=== PATIENT | male | born 1965 | race African-American/Black ===

== ENCOUNTER 2022-08-31 11:07 | Outpatient (REF) | payer OTHER, SELFPAY ==
--- NOTE | ~2022-08-31 | XR_ITS ---
EXAMINATION: XR CHEST CLINICAL INFORMATION: COPD COMPARISON: None available. TECHNIQUE: 2 views of the chest were obtained. FINDINGS: The cardiac silhouette does not appear enlarged. The thoracic aorta is tortuous. Hilar and mediastinal contours are otherwise unremarkable clear. No pleural effusion or pneumothorax. Bony structures are unremarkable. XR/XR chest 2V IMPRESSION: No evidence for acute disease in the chest. Tortuous thoracic aorta.
== END 2022-08-31 11:08 | disposition home or self-care (01) ==
LOC: HO.XRAY 11:07
PROVIDERS: PCP Internal Medicine; Visit Provider Internal Medicine
DX: J44.9 Chronic obstructive pulmonary disease, unspecified (principal)
CPT/HCPCS: 71046

== ENCOUNTER 2022-09-14 11:51 | Outpatient (REF) | payer OTHER, SELFPAY ==
[2022-09-14 12:02] LABS: MANUAL DIFF FLAG NO
[2022-09-14 12:26] LABS: Basophils Percent Auto 0.7 % (0-2); Eosinophils Absolute Auto 0.2 X10*3/uL (0.0-0.4); Eosinophils Percent Auto 3.3 % (0-4); Hematocrit 39.8 % (42.0-52.0); Hemoglobin 13.2 g/dl (14.0-18.0); Imm Gran Abs Auto 0.02 X10*3/uL (0.00-0.03); Imm Gran Pct Auto 0.4 % (0.0-0.4); Lymphocytes Percent Auto 17.9 % (20-40); Mean Corpuscular HGB Conc 33.2 g/dl (31.0-36.0); Mean Corpuscular Hemoglobin 29.8 pg (27.0-33.0); Mean Corpuscular Volume 89.8 fL (80.0-98.0); Mean Platelet Volume 9.2 fL (9.4-12.4); Monocytes Absolute Auto 0.7 X10*3/uL (0.1-1.2); Monocytes Percent Auto 13.3 % (2-11); Neutrophils Absolute Auto 3.5 x10*3/uL (2.0-8.3); Neutrophils Percent Auto 64.4 % (45-73); Platelet Count 226 X10*3/uL (160-400); Red Blood Count 4.43 X10*6/uL (4.60-5.80); Red Cell Distribution Width 13.6 % (11.0-16.0); White Blood Count 5.5 X10*3/uL (4.8-10.8)
[2022-09-14 12:54] LABS: Alanine Aminotransferase 13 U/L (0-40); Albumin Level 4.2 g/dL (3.5-5.0); Alkaline Phosphatase 78 U/L (39-117); Anion Gap 14 (12-20); Aspartate Amino Transferase 13 U/L (5-37); Blood Urea Nitrogen 14 mg/dL (9-16); Calcium 9.5 mg/dL (8.4-10.2); Carbon Dioxide 27 mmol/L (22-29); Chloride 104 mmol/L (96-108); Cholesterol 209 mg/dL; Estimated Glomerular Filt Rate > 60; Glucose Random 81 mg/dL (60-115); HDL Cholesterol 45 mg/dL; LDL Cholesterol Calculated 152 mg/dl; Potassium 4.2 mmol/L (3.3-5.1); Sodium 141 mmol/L (135-145); Total Protein 7.3 g/dL (6.5-8.0); Triglycerides 64 mg/dL
[2022-09-14 13:15] LABS: Prostate Specific Antigen Scr 31.43 ng/mL (<0.05-4.0)
== END 2022-09-14 11:52 | disposition home or self-care (01) ==
LOC: HO.LAB 11:51
PROVIDERS: PCP Internal Medicine; Visit Provider Internal Medicine
DX: Z00.00 Encounter for general adult medical examination without abnormal findings (principal); Z12.5 Encounter for screening for malignant neoplasm of prostate; E78.00 Pure hypercholesterolemia, unspecified; I10 Essential (primary) hypertension; R97.20 Elevated prostate specific antigen [PSA]
CPT/HCPCS: 36415; 80053; 80061; 84153; 85025

== ENCOUNTER 2022-11-29 11:04 | Outpatient (REF) | payer OTHER, SELFPAY ==
[2022-11-29 13:52] LABS: Alanine Aminotransferase 11 U/L (0-40); Alkaline Phosphatase 69 U/L (39-117); Anion Gap 12 (12-20); Aspartate Amino Transferase 13 U/L (5-37); Bilirubin Total 0.8 mg/dL (0.0-1.0); Blood Urea Nitrogen 11 mg/dL (9-16); Calcium 9.3 mg/dL (8.4-10.2); Carbon Dioxide 25 mmol/L (22-29); Chloride 107 mmol/L (96-108); Cholesterol 192 mg/dL; Estimated Glomerular Filt Rate > 60; Glucose Random 83 mg/dL (60-115); HDL Cholesterol 46 mg/dL; LDL Cholesterol Calculated 131 mg/dl; Potassium 3.8 mmol/L (3.3-5.1); Sodium 140 mmol/L (135-145); Total Protein 6.9 g/dL (6.5-8.0); Triglycerides 76 mg/dL
== END 2022-11-29 11:05 | disposition home or self-care (01) ==
LOC: HO.10HDL 11:04
PROVIDERS: Visit Provider Internal Medicine
DX: E78.00 Pure hypercholesterolemia, unspecified (principal); I10 Essential (primary) hypertension; R97.20 Elevated prostate specific antigen [PSA]
CPT/HCPCS: 36415; 80053; 80061

== ENCOUNTER 2022-12-20 14:35 | Outpatient (AMB) | payer OTHER, MEDICAID, SELFPAY ==
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
[2022-12-20 14:40] VITALS: BP 154/80; PULSE 54; O2SAT 100; BMI 25.1
== END 2022-12-20 15:30 | disposition home or self-care (01) ==
PROVIDERS: PCP Internal Medicine; Visit Provider Internal Medicine
DX: R05.9 Cough, unspecified (principal); R06.09 Other forms of dyspnea; C61 Malignant neoplasm of prostate
CPT/HCPCS: 99203

== ENCOUNTER 2022-12-20 14:35 | Outpatient (REF) | payer OTHER, MEDICAID, SELFPAY ==
--- NOTE | ~2022-12-20 | XR_ITS ---
EXAMINATION: XR CHEST 2 VIEW CLINICAL INFORMATION: Dyspnea COMPARISON: 08/31/2022 TECHNIQUE: PA and lateral views of the chest obtained. FINDINGS: The lungs are clear. There are no pleural effusions. The cardiomediastinal silhouette is stable. The aorta is uncoiled. XR/XR chest 2V IMPRESSION: No acute cardiopulmonary disease.
== END 2022-12-20 14:36 | disposition home or self-care (01) ==
LOC: HO.XRAY 14:35
PROVIDERS: PCP Internal Medicine; Visit Provider Internal Medicine
DX: R06.09 Other forms of dyspnea (principal); R05.9 Cough, unspecified; C61 Malignant neoplasm of prostate
CPT/HCPCS: 71046

== ENCOUNTER 2023-01-02 10:34 | Outpatient (REF) | payer OTHER, SELFPAY ==
--- NOTE | 2023-01-02 11:19 | PFT_ITS ---
FINDINGS: Forced vital capacity 133%, FEV1 of 119% and FEV1/FVC ratio is 70. [id number] 81% and MVV is 85%. Post bronchodilator therapy, there is significant improvement in [id number] and FEF maximum. Total lung capacity 131%. The residual volume is 215% indicating hyperinflation and some air trapping. Diffusion capacity is 85%. CONCLUSION: While there is no obstructive or restrictive pulmonary disorder, there is a significant response to bronchodilator therapy consistent with bronchial asthma. Clinical correlation is recommended. MD ANA Rodriguez/MODL / [id number]
== END 2023-01-02 10:35 | disposition home or self-care (01) ==
LOC: HO.RESP 10:34
PROVIDERS: PCP Internal Medicine; Visit Provider Internal Medicine
DX: R05.9 Cough, unspecified (principal); R06.09 Other forms of dyspnea
CPT/HCPCS: 94010; 94727; 94729

== ENCOUNTER → 2023-01-02 11:19 | Outpatient (BNV) | payer OTHER, SELFPAY | PROVIDERS: PCP Internal Medicine; Visit Provider Internal Medicine | DX: J45.909 Unspecified asthma, uncomplicated (principal); R05.9 Cough, unspecified | CPT/HCPCS: 94060; 94727; 94729 ==

== ENCOUNTER 2023-01-25 10:06 | Outpatient (AMB) | payer OTHER, MEDICAID, SELFPAY ==
--- NOTE | 2023-01-25 10:08 | MHC.OFFVIS ---
Intake Vital Signs 01/25/23 10:09 Height 5 ft 11 in Weight 191 lb BMI 26.6 BP 110/82 Blood Pressure Location Lt brachial Position Sitting Pulse 71 Pulse Source Pulse Oximeter Pulse Oximetry (%) 99 Oxygen Delivery Method Room Air Intake Visit Reasons: COPD Intake Note: pt is here for follow up and states he is feeling good. 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 He was seen about a month ago for ongoing intermittent cough. Since then his cough has almost resolved completely. He does have albuterol HFA on hand but does not need to use it. 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 I advised him to veer double mask when he is in this kind. of situation And use albuterol inhaler as needed. Jaiden is a case of prostate cancer and is to be started on chemotherapy. [facility] Medical History (Updated 01/25/23 @ 10:30 by William Bhat MD) Asthma Cancer of prostate Dyspnea on effort Cough Social History Patient Tobacco Use Status: Never used Tobacco Review of Systems Const All systems reviewed & are unremarkable except as noted in HPI and below Eyes Reports no additional complaints ENT Reports no additional complaints Card Denies chest pain, Denies irregular heart rhythm and Denies leg edema Resp Reports as per HPI GI Reports no additional complaints Reports nocturia, Reports urinary frequency and Reports other (Recent diagnosis of prostate cancer) Musc Reports no additional complaints Skin/Breast Reports system reviewed and no additional complaints, except as documented Neuro Reports no additional complaints Psych Reports no additional complaints Endo Reports no additional complaints Minesh/Lymph Reports no additional complaints Physical Exam Vital Signs: Last Vital Signs Pulse 71 01/25/23 10:09 BP 110/82 01/25/23 10:09 Pulse Ox 99 01/25/23 10:09 Oxygen Delivery Method Room Air 01/25/23 10:09 BMI result Body Mass Index 26.6 Const General: comfortable, no acute distress, alert and awake Orientation/consciousness: patient oriented x3 HEENT Head: Yes normal to inspection General nose exam: No nasal polyps present and No nasal discharge present Face and sinus: Yes sinuses nontender Mouth: oropharynx normal Throat: Yes posterior oropharynx normal Eyes General: appearance normal, both eyes and all related structures Neck Neck: Yes normal visual inspection, Yes no lymphadenopathy, Yes trachea midline and Yes no JVD Thyroid: Thyroid normal Chest Chest palpation & inspection: normal inspection of the chest and no tenderness Resp Other: Percussion note is resonant, breath sounds are equal on both sides . No wheezes rhonchi or crepitations are heard. He does not get any cough even on taking a deep breath. Cardio Palpation: normal PMI Rate: regular rate Rhythm: regular rhythm Heart sounds: no gallops and no murmurs GI Palpation (GI): Soft to palpation, nontender, No hepatosplenomegaly present and no masses Auscultation: normal bowel sounds Back/Spine/Pelvis Thoracic/Lumbar Spine: thoracic and lumbar spine normal to inspection Skin General skin exam: no rashes or lesions noted Neuro General: patient oriented x3 and no focal motor deficits Cranial nerves: Yes CN's II-XII intact bilaterally Extrem General: Yes normal to inspection, Yes no clubbing, cyanosis or edema and Yes no calf tenderness Psych Appearance: grossly normal Speech and movement: Normal speech and movement present Results Reviewed Results Reviewed: CHEST X-RAY WAS NORMAL, NO INTRINSIC LUNG DISEASE. PULMONARY FUNCTION TEST SHOWS ALL THE FLOW VOLUMES AND LUNG. VOLUMES IN NORMAL RANGE BUT THERE IS AN EXAGGERATED RESPONSE TO BRONCHODILATOR THERAPY, INDICATED OF OF MILD BRONCHIAL ASTHMA. Assessment & Plan Assessment & Plan (1) Cough: Comment: SINCE HIS LAST VISIT HIS COUGH HAS RESOLVED COMPLETELY, AND HE HAS NOT REQUIRED, USE OF BRONCHODILATORS. Code(s): R05.9 - Cough, unspecified (2) Asthma: Comment: MILD INTERMITTENT, MOSTLY DUE, TO EXPOSURE TO DUST , SMOKE, OR FIBERGLASS INSULATION. TX : EXPLAINED THE RESULTS OF PFT TO HIM. USE ALBUTEROL HFA 1 OR 2 PUFFS Q 4-6 HOURS ONLY P.R.N. FOR BOUTS OF COUGH OR WHEEZING. Code(s): J45.909 - Unspecified asthma, uncomplicated Coding Level of Care Code Est Pt Level 3 (60148) Diagnoses Cough R05.9 Asthma J45.909
[2023-01-25 10:09] VITALS: BP 110/82; PULSE 71; O2SAT 99; BMI 26.6
== END 2023-01-25 10:25 | disposition home or self-care (01) ==
PROVIDERS: PCP Internal Medicine; Visit Provider Internal Medicine
DX: R05.9 Cough, unspecified (principal); J45.909 Unspecified asthma, uncomplicated
CPT/HCPCS: 99213

== ENCOUNTER → 2023-01-25 10:06 | Outpatient (BNVA) | payer OTHER, SELFPAY | PROVIDERS: PCP Internal Medicine; Visit Provider Internal Medicine ==

== ENCOUNTER 2023-08-08 10:01 | Outpatient (REF) | payer OTHER, SELFPAY ==
--- NOTE | ~2023-08-08 | XR_ITS ---
EXAMINATION: XR chest 2V CLINICAL INFORMATION: Reason for Exam COUGH,HX OF METASTATIC PROSTATE CA COMPARISON: Chest radiograph 12/20/2022 TECHNIQUE: 2 views of the chest FINDINGS: Right medial lung base 4 mm opacity may reflect a nodule versus superimposition of structures. No pneumothorax or pleural effusion. Unchanged cardiomediastinal silhouette. Right CVC tip projects over the right atrium.. XR/XR chest 2V Impression: Right medial lung base 4 mm opacity may reflect a nodule versus superimposition of structures. Consider CT chest for further evaluation
[2023-08-08 10:16] LABS: MANUAL DIFF FLAG NO
[2023-08-08 10:55] LABS: Basophils Percent Auto 0.6 % (0-2); Eosinophils Absolute Auto 0.4 X10*3/uL (0.0-0.4); Eosinophils Percent Auto 10.9 % (0-4); Hematocrit 38.2 % (42.0-52.0); Hemoglobin 12.4 g/dl (14.0-18.0); Lymphocytes Absolute Auto 1.5 X10*3/uL (1.2-4.9); Lymphocytes Percent Auto 44.2 % (20-40); Mean Corpuscular HGB Conc 32.5 g/dl (31.0-36.0); Mean Corpuscular Hemoglobin 28.8 pg (27.0-33.0); Mean Corpuscular Volume 88.8 fL (80.0-98.0); Mean Platelet Volume 9.7 fL (9.4-12.4); Monocytes Absolute Auto 0.3 X10*3/uL (0.1-1.2); Monocytes Percent Auto 7.7 % (2-11); Neutrophils Absolute Auto 1.2 x10*3/uL (2.0-8.3); Neutrophils Percent Auto 36.6 % (45-73); Platelet Count 238 X10*3/uL (160-400); Red Cell Distribution Width 14.1 % (11.0-16.0); White Blood Count 3.4 X10*3/uL (4.8-10.8)
[2023-08-08 11:58] LABS: Alanine Aminotransferase 15 U/L (0-40); Albumin Level 4.2 g/dL (3.5-5.0); Alkaline Phosphatase 100 U/L (39-117); Anion Gap 12 (12-20); Aspartate Amino Transferase 14 U/L (5-37); Bilirubin Total 0.5 mg/dL (0.0-1.0); Blood Urea Nitrogen 17 mg/dL (9-16); Calcium 9.1 mg/dL (8.4-10.2); Carbon Dioxide 27 mmol/L (22-29); Chloride 106 mmol/L (96-108); Cholesterol 238 mg/dL (<200); Estimated Glomerular Filt Rate > 60; Glucose Random 85 mg/dL (60-115); HDL Cholesterol 46 mg/dL (>40); LDL Cholesterol Calculated 172 mg/dL (<100); Potassium 4.3 mmol/L (3.3-5.1); Sodium 141 mmol/L (135-145); Total Protein 7.1 g/dL (6.5-8.0); Triglycerides 102 mg/dL (<150)
== END 2023-08-08 10:02 | disposition home or self-care (01) ==
LOC: HO.LAB 10:01
PROVIDERS: PCP Internal Medicine; Visit Provider Internal Medicine
DX: Z00.00 Encounter for general adult medical examination without abnormal findings (principal); Z13.6 Encounter for screening for cardiovascular disorders; R05.9 Cough, unspecified; J44.9 Chronic obstructive pulmonary disease, unspecified; I10 Essential (primary) hypertension; E78.00 Pure hypercholesterolemia, unspecified; C61 Malignant neoplasm of prostate
CPT/HCPCS: 36415; 71046; 80053; 80061; 85025

== ENCOUNTER 2023-09-12 09:12 | Outpatient (AMB) | payer OTHER, SELFPAY ==
[2023-09-12 09:38] VITALS: BP 130/78; PULSE 82; O2SAT 98; BMI 28.7
--- NOTE | 2023-09-12 09:38 | MHC.OFFVIS ---
Vital Signs 09/12/23 09:38 Height 5 ft 11 in Weight 206 lb 2.115 oz BMI 28.7 BP 130/78 Blood Pressure Location Lt brachial Position Sitting Pulse 82 Pulse Source Pulse Oximeter Pulse Oximetry (%) 98 Oxygen Delivery Method Room Air Intake Visit Reasons: copd Intake Note: pt is here for follow up and states he is snoring a lot and witnessed apneas, he does get up often to use the bathroom, due to medication, and he has been coughing for 2 weeks with a lot of mucous, when sleeping wheezing, and fever past 2 days. [employer] Required: No Allergies No Known Allergies Allergy (Verified 09/12/23 10:10) Medication List - Last Reconciled 09/12/23 by William Bhat MD acetaminophen 650 mg PO Q6H PRN albuterol sulfate 90 mcg/actuation 2 puffs inhalation Q4-6H PRN amlodipine 10 mg PO DAILY atorvastatin 20 mg PO DAILY darolutamide (Nubeqa) 600 mg PO BID Do you need a note to return to daycare/school/sports/work: No HPI HPI copd: Details: THIS 57 YEARS OLD GENTLEMAN, COMES IN WITH CHIEF COMPLAINT OF SOME NASAL CONGESTION AND COUGH FOR THE LAST 2 WEEKS. HE DID HAVE LOW-GRADE FEVER FOR A FEW DAYS. NOW DURING THE PAST 1 WEEK IT IS ALMOST GONE. HE DOES HAVE TENDENCY TO HAVE NASAL CONGESTION. HIS PRIMARY CARE PHYSICIAN GAVE HIM A NASAL SPRAY WHICH HAS HELPED ( DOES NOT KNOW THE NAME) HIS CAME ALONG WITH HIM. SHE STATED THAT HE DOES SNORE MODERATELY HEAVY AT NIGHT ESPECIALLY IF HE IS ON HIS BACK. ALSO HAS SOME WHISTLING SOUNDS AT NIGHT WHEN SLEEPING. JENNY TELLS ME THAT HE HAS TENDENCY TO SNORE MORE WHEN HIS HE HAS NASAL CONGESTION, DURING THE DAYTIME HE DOES NOT HAVE ANY WHEEZING AND HAS NOT NEEDED TO USE ALBUTEROL. HE DENIES DAYTIME SLEEPINESS. 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 HE CONTINUES HIS TREATMENT WITH DAROLUTAMIDE 600 MG B.I.D.. HE IS ONLY SLIGHTLY OVERWEIGHT. [facility] Medical History (Updated 09/12/23 @ 13:16 by William Bhat MD) Snoring Asthma Cancer of prostate Dyspnea on effort Cough Social History Patient Tobacco Use Status: Never used Tobacco Review of Systems Const All systems reviewed & are unremarkable except as noted in HPI and below Eyes Reports no additional complaints ENT Reports no additional complaints Card Denies chest pain, Denies irregular heart rhythm and Denies leg edema Resp Reports as per HPI GI Reports no additional complaints Reports nocturia, Reports urinary frequency and Reports other (Recent diagnosis of prostate cancer) Musc Reports no additional complaints Skin/Breast Reports system reviewed and no additional complaints, except as documented Neuro Reports no additional complaints Psych Reports no additional complaints Endo Reports no additional complaints Minesh/Lymph Reports no additional complaints Physical Exam Vital Signs: Last Vital Signs Pulse 82 09/12/23 09:38 BP 130/78 09/12/23 09:38 Pulse Ox 98 09/12/23 09:38 Oxygen Delivery Method Room Air 09/12/23 09:38 BMI result Body Mass Index 28.7 Const General: comfortable, no acute distress, alert and awake Orientation/consciousness: patient oriented x3 HEENT Head: Yes normal to inspection General nose exam: No nasal polyps present, mucous membranes and turbinates abnormal (NASAL TURBINATES ARE MODERATELY ENLARGED) and No nasal discharge present Face and sinus: Yes sinuses nontender Mouth: oropharynx normal Throat: Yes posterior oropharynx normal Eyes General: appearance normal, both eyes and all related structures Neck Neck: Yes normal visual inspection, Yes no lymphadenopathy, Yes trachea midline, Yes no JVD and Yes other (NECK CIRCUMFERENCE 16 IN) Thyroid: Thyroid normal Chest Chest palpation & inspection: normal inspection of the chest, normal palpation of entire chest wall and no tenderness Resp Other: Percussion note is resonant, breath sounds are equal on both sides . No wheezes rhonchi or crepitations are heard. He does not get any cough even on taking a deep breath. Cardio Palpation: normal PMI Rate: regular rate Rhythm: regular rhythm Heart sounds: no gallops and no murmurs GI Palpation (GI): Soft to palpation, nontender, No hepatosplenomegaly present and no masses Auscultation: normal bowel sounds Back/Spine/Pelvis Thoracic/Lumbar Spine: thoracic and lumbar spine normal to inspection Skin General skin exam: no rashes or lesions noted Neuro General: patient oriented x3 and no focal motor deficits Cranial nerves: Yes CN's II-XII intact bilaterally Extrem General: Yes normal to inspection, Yes no clubbing, cyanosis or edema and Yes no calf tenderness Psych Appearance: grossly normal Speech and movement: Normal speech and movement present Assessment & Plan Assessment & Plan (1) Asthma: Comment: MILD INTERMITTENT, MOSTLY DUE, TO EXPOSURE TO DUST , SMOKE, OR FIBERGLASS INSULATION OR IF HE HAS ANY UPPER RESPIRATORY INFECTION, Code(s): J45.909 - Unspecified asthma, uncomplicated Category: Medical Plan: TX : EXPLAINED THE RESULTS OF PFT TO HIM. USE ALBUTEROL HFA 1 OR 2 PUFFS Q 4-6 HOURS ONLY P.R.N. FOR BOUTS OF COUGH OR WHEEZING. (2) Cough: Comment: MILD INTERMITTENT MOSTLY ASTHMA VARIANT. Code(s): R05.9 - Cough, unspecified Category: Medical Plan: ADVISED TO USE ALBUTEROL 2 PUFFS Q 6 HOURS P.R.N. IF HE HAS PERSISTENT BOUTS OF COUGH. ALSO MAY USE OTC COUGH PREPARATIONS NEEDED. (3) Snoring: Comment: ACCORDING TO HIS HE DOES SNORE MODERATELY AT NIGHT ESPECIALLY IF HE IS IN SUPINE POSITION JENNY SAYS THAT HE TENDS TO SNORE MORE WHEN HE HAS COMMON COLD SYMPTOMS. Code(s): R06.83 - Snoring Category: Medical Plan: ADVISED TO LOSE ABOUT. 5 LB OF WEIGHT ADVISED TO SLEEP IN LATERAL POSITION. MAY USE NASAL SPRAY , SUCH FLONASE 1 OR 2 SPRAYS IN EACH NOSTRIL AT NIGHT. I DID EXPLAIN TO THE PATIENT AND HIS THAT HIS INDEX FOR OBSTRUCTIVE SLEEP APNEA IS VERY LOW. Coding Level of Care Code Est Pt Level 3 (31930) Diagnoses Asthma J45.909 Cough R05.9 Snoring R06.83
== END 2023-09-12 10:09 | disposition home or self-care (01) ==
PROVIDERS: PCP Internal Medicine; Visit Provider Internal Medicine
DX: J45.909 Unspecified asthma, uncomplicated (principal); R05.9 Cough, unspecified; R06.83 Snoring
CPT/HCPCS: 99213

== ENCOUNTER → 2023-09-12 09:12 | Outpatient (BNVA) | payer OTHER, SELFPAY | PROVIDERS: PCP Internal Medicine; Visit Provider Internal Medicine ==

== ENCOUNTER 2023-11-13 14:51 | Outpatient (AMB) | payer OTHER, SELFPAY ==
--- NOTE | 2023-11-13 14:52 | A.OFFVIS_ITS ---
Vital Signs 11/13/23 14:54 Height 5 ft 11 in Weight 207 lb BMI 28.9 BP 140/88 H Blood Pressure Location Rt brachial Position Sitting Respiration 15 Pulse 82 Pulse Source Pulse Oximeter Pulse Oximetry (%) 96 Oxygen Delivery Method Room Air Intake Visit Reasons: hospital follow up Allergies No Known Allergies Allergy (Verified 11/13/23 15:24) Medication List - Last Reconciled 11/13/23 by William Bhat MD acetaminophen 650 mg PO Q6H PRN albuterol sulfate 90 mcg/actuation 2 puffs inhalation Q4-6H PRN amlodipine 10 mg PO DAILY atorvastatin 20 mg PO DAILY darolutamide (Nubeqa) 600 mg PO BID [id number]-eldvvsfdj-xsrfktkc 100-62.5-25 mcg (Trelegy Ellipta) 1 inh inhalation DAILY prednisone 10 mg PO DIRECTED 10 days Do you need a note to return to daycare/school/sports/work: No HPI HPI hospital follow up: Details: This 57 years old gentleman, 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 He has had history of intermittent wheezing., usually treated with albuterol inhaler p.r.n.. I had prescribed him just albuterol inhaler to use 2 puffs Q 6 hours p.r.n.. He has been prescribed it Trelegy by someone, which he was using 1 puff a day, . And says it was helping But he ran out of this the product. He tells me that he was admitted to [facility] just about 1 week ago because he was having whistling sounds in the chest and felt congested. He was kept in the hospital overnight and was told that he has asthma exacerbation and questionable pneumonia. He was sent home on an antibiotic which he finished in 3 days, ( most likely Z- Young) He was also sent home on prednisone which he took just for 2 days and then lost his pills. He saw his primary care physician Dr. Fan who has prescribed the nebulizer with the albuterol solution to be used Q 4-6 hours p.r.n. He has not used it much. He comes today for follow-up here and claims that he still feels congested, he still has some whistling sounds in the chest at night. But he has no fever or chills and does not have any chest pain. [facility] Medical History Exacerbation of asthma Snoring Asthma Cancer of prostate Dyspnea on effort Cough Social History Patient Tobacco Use Status: Never used Tobacco Review of Systems Const All systems reviewed & are unremarkable except as noted in HPI and below Eyes Reports no additional complaints ENT Reports no additional complaints Card Denies chest pain, Denies irregular heart rhythm and Denies leg edema Resp Reports as per HPI GI Reports no additional complaints Reports nocturia, Reports urinary frequency and Reports other (Recent diagnosis of prostate cancer) Musc Reports no additional complaints Skin/Breast Reports system reviewed and no additional complaints, except as documented Neuro Reports no additional complaints Psych Reports no additional complaints Endo Reports no additional complaints Minesh/Lymph Reports no additional complaints Physical Exam Vital Signs: Last Vital Signs Pulse 82 11/13/23 14:54 Resp 15 11/13/23 14:54 BP 140/88 H 11/13/23 14:54 Pulse Ox 96 11/13/23 14:54 Oxygen Delivery Method Room Air 11/13/23 14:54 BMI result Body Mass Index 28.9 Const General: comfortable, no acute distress, alert and awake Orientation/consciousness: patient oriented x3 HEENT Head: Yes normal to inspection General nose exam: No nasal polyps present, mucous membranes and turbinates abnormal (NASAL TURBINATES ARE MODERATELY ENLARGED) and No nasal discharge present Face and sinus: Yes sinuses nontender Mouth: oropharynx normal Throat: Yes posterior oropharynx normal Eyes General: appearance normal, both eyes and all related structures Neck Neck: Yes normal visual inspection, Yes no lymphadenopathy, Yes trachea midline, Yes no JVD and Yes other (NECK CIRCUMFERENCE 16 IN) Thyroid: Thyroid normal Chest Chest palpation & inspection: normal inspection of the chest, normal palpation of entire chest wall and no tenderness Resp Other: Percussion note is resonant, breath sounds are equal on both sides . He does have some inspiratory wheezes over the mid chest on both sides, no crepitations Cardio Palpation: normal PMI Rate: regular rate Rhythm: regular rhythm Heart sounds: no gallops and no murmurs GI Palpation (GI): Soft to palpation, nontender, No hepatosplenomegaly present and no masses Auscultation: normal bowel sounds Back/Spine/Pelvis Thoracic/Lumbar Spine: thoracic and lumbar spine normal to inspection Skin General skin exam: no rashes or lesions noted Neuro General: patient oriented x3 and no focal motor deficits Cranial nerves: Yes CN's II-XII intact bilaterally Extrem General: Yes normal to inspection, Yes no clubbing, cyanosis or edema and Yes no calf tenderness Psych Appearance: grossly normal Speech and movement: Normal speech and movement present Results Reviewed Results Reviewed: Chest x-ray in July had shown a 4 mm nodule in the right lower lobe, and patient needed a follow-up. Assessment & Plan Assessment & Plan (1) Asthma: Comment: MILD INTERMITTENT, MOSTLY DUE, TO EXPOSURE TO DUST , SMOKE, OR FIBERGLASS INSULATION OR IF HE HAS ANY UPPER RESPIRATORY INFECTION, AT PRESENT HE IS RECOVERING FROM AN ACUTE EXACERBATION, WHICH MAY HAVE BEEN DUE TO ACUTE RESPIRATORY INFECTION. Code(s): J45.909 - Unspecified asthma, uncomplicated Category: Medical Plan: I HAVE ORDERED A CHEST X-RAY TO BE DONE TODAY AT HOSPITAL. PREDNISONE 10 MG B.I.D. FOR 5 DAYS AND THEN ONCE A DAY FOR 5 DAYS. USE ALBUTEROL INHALATION SOLUTION IN THE NEBULIZER Q 6 HOURS P.R.N. WHEN OUTDOORS HE CAN USE ALBUTEROL HFA Q.6 HOURS P.R.N.. I DO NOT THINK HE NEEDS ANY ANTIBIOTIC AT THIS TIME. (2) Cancer of prostate: Comment: PER PATIENT HE HAS BEEN DIAGNOSED TO HAVE PROSTATE CANCER, MORE DETAILS NOT AVAILABLE, Code(s): C61 - Malignant neoplasm of prostate Category: Medical Plan: CONTINUE NUBEQA 600 MG B.I.D.. (3) Exacerbation of asthma: Comment: HE WAS TREATED AT [facility] FOR ACUTE EXACERBATION OF BRONCHIAL ASTHMA AND QUESTION OF PNEUMONITIS. STILL HAS RESIDUAL CHEST CONGESTION AND WHEEZING. Code(s): J45.901 - Unspecified asthma with (acute) exacerbation Category: Medical Plan: CHEST X-RAY IS ORDERED. PREDNISONE 10 MG B.I.D. FOR 5 DAYS THEN 10 MG ONCE A DAY I WILL RECHECK HIM IN 2 WEEKS. Orders: Orders XR chest 2V Today C61 - Malignant neoplasm of prostate, J45.901 - Unspecified asthma with (acute) exacerbation Medications: New prednisone 2 tablets a day for 5 days then 1 tablet a day for 5 days 10 mg PO DIRECTED 10 days 15 tabs 0RF Asthma Excerbation Coding Level of Care Code Est Pt Level 3 (47974) Diagnoses Asthma J45.909 Cancer of prostate C61 Exacerbation of asthma J45.901
[2023-11-13 14:54] VITALS: BP 140/88; PULSE 82; RESP 15; O2SAT 96; BMI 28.9
== END 2023-11-13 15:19 | disposition home or self-care (01) ==
PROVIDERS: PCP Internal Medicine; Visit Provider Internal Medicine
DX: J45.909 Unspecified asthma, uncomplicated (principal); C61 Malignant neoplasm of prostate; J45.901 Unspecified asthma with (acute) exacerbation
CPT/HCPCS: 99213

== ENCOUNTER 2023-11-13 14:51 | Outpatient (REF) | payer OTHER, SELFPAY ==
--- NOTE | ~2023-11-13 | XR_ITS ---
EXAMINATION: XR chest 2V CLINICAL INFORMATION: Reason for Exam J45.901 - Unspecified asthma with (acute) exacerbation COMPARISON: July 2023 TECHNIQUE: XR chest 2V, 2 Views Lungs and Yoana: Both lungs are clear. Pleura: Normal. Costophrenic angles are sharp. No pneumothorax. Heart: The heart is normal in size. Mediastinum: Port-A-Cath in place the tip of which projecting over the SVC/RA junction.. Bones: Skeletal structures included are normal for patient's age. XR/XR chest 2V IMPRESSION: * No radiographic evidence of acute cardiopulmonary disease. * Port-A-Cath in place properly positioned.
== END 2023-11-13 14:52 | disposition home or self-care (01) ==
LOC: HO.XRAY 14:51
PROVIDERS: PCP Internal Medicine; Visit Provider Internal Medicine
DX: J45.901 Unspecified asthma with (acute) exacerbation (principal); C61 Malignant neoplasm of prostate
CPT/HCPCS: 71046

== ENCOUNTER 2023-12-03 16:07 | Outpatient (AMB) | payer OTHER, SELFPAY ==
[2023-12-03 16:15] VITALS: BP 132/88; PULSE 80; O2SAT 100; BMI 29.1
--- NOTE | 2023-12-03 16:15 | MHC.OFFVIS ---
Vital Signs 12/03/23 16:15 Height 5 ft 11 in Weight 209 lb BMI 29.1 BP 132/88 Blood Pressure Location Rt brachial Position Sitting Pulse 80 Pulse Source Pulse Oximeter Pulse Oximetry (%) 100 Oxygen Delivery Method Room Air Intake Visit Reasons: COPD Intake Note: pt is here for follow up of copd, and states he is feeling good. walking 2 miles a day. please send in dose of prednisone for him to take on this travels. 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 AFTER COMPLETING THE COURSE OF PREDNISONE HE IS FEELING MUCH BETTER. BACK TO HIS BASELINE. NOW HE CAN WALK 2 MILES WITHOUT. GETTING SHORT OF BREATH HOWEVER HE STILL HAS SOME INTERMITTENT NASAL CONGESTION WITH POSTNASAL DISCHARGE. STILL HAS MILD INTERMITTENT COUGH. NO WHEEZING ATTACKS. CHEST X-RAY WAS NEGATIVE. [facility] Medical History Exacerbation of asthma Snoring Asthma Cancer of prostate Dyspnea on effort Cough Social History Patient Tobacco Use Status: Never used Tobacco Review of Systems Const All systems reviewed & are unremarkable except as noted in HPI and below Eyes Reports no additional complaints ENT Reports no additional complaints Card Denies chest pain, Denies irregular heart rhythm and Denies leg edema Resp Reports as per HPI GI Reports no additional complaints Reports nocturia, Reports urinary frequency and Reports other (Recent diagnosis of prostate cancer) Musc Reports no additional complaints Skin/Breast Reports system reviewed and no additional complaints, except as documented Neuro Reports no additional complaints Psych Reports no additional complaints Endo Reports no additional complaints Minesh/Lymph Reports no additional complaints Physical Exam Vital Signs: Last Vital Signs Pulse 80 12/03/23 16:15 BP 132/88 12/03/23 16:15 Pulse Ox 100 12/03/23 16:15 Oxygen Delivery Method Room Air 12/03/23 16:15 BMI result Body Mass Index 29.1 Const General: comfortable, no acute distress, alert and awake Orientation/consciousness: patient oriented x3 HEENT Head: Yes normal to inspection General nose exam: No nasal polyps present, mucous membranes and turbinates abnormal (NASAL TURBINATES ARE MODERATELY ENLARGED) and No nasal discharge present Face and sinus: Yes sinuses nontender Mouth: oropharynx normal Throat: Yes posterior oropharynx normal Eyes General: appearance normal, both eyes and all related structures Neck Neck: Yes normal visual inspection, Yes no lymphadenopathy, Yes trachea midline, Yes no JVD and Yes other (NECK CIRCUMFERENCE 16 IN) Thyroid: Thyroid normal Chest Chest palpation & inspection: normal inspection of the chest, normal palpation of entire chest wall and no tenderness Resp Other: Percussion note is resonant, breath sounds are equal on both sides . Both lungs are very clear today ache. No wheezing or crepitations are heard. Cardio Palpation: normal PMI Rate: regular rate Rhythm: regular rhythm Heart sounds: no gallops and no murmurs GI Palpation (GI): Soft to palpation, nontender, No hepatosplenomegaly present and no masses Auscultation: normal bowel sounds Back/Spine/Pelvis Thoracic/Lumbar Spine: thoracic and lumbar spine normal to inspection Skin General skin exam: no rashes or lesions noted Neuro General: patient oriented x3 and no focal motor deficits Cranial nerves: Yes CN's II-XII intact bilaterally Extrem General: Yes normal to inspection, Yes no clubbing, cyanosis or edema and Yes no calf tenderness Psych Appearance: grossly normal Speech and movement: Normal speech and movement present Assessment & Plan Assessment & Plan (1) Exacerbation of asthma: Comment: HE WAS TREATED AT [facility] FOR ACUTE EXACERBATION OF BRONCHIAL ASTHMA AND QUESTION OF PNEUMONITIS. Since his last visit his respiratory symptoms have definitely improved, now he is mostly at his baseline. He does have ongoing moderately severe bronchial asthma. Code(s): J45.901 - Unspecified asthma with (acute) exacerbation Category: Medical Plan: Continue Trelegy Ellipta 1 inhalation daily. Continue albuterol HFA 2 puffs Q 6 hours p.r.n.. Also has nebulizer at home with albuterol solution. Advise that he can use albuterol solution in the nebulizer Q [address] of albuterol MDI As he will be traveling to [facility], I would prescribe supply of prednisone for him to keep at hand and use in case of acute exacerbation. (2) Cough: Comment: MILD INTERMITTENT MOSTLY ASTHMA VARIANT, SEEMS TO BE FAIRLY WELL CONTROLLED AT THIS TIME. Code(s): R05.9 - Cough, unspecified Category: Medical Plan: CONTINUE TREATMENT RECORDED UNDER ASTHMA EXACERBATION. Medications: New prednisone 20 mg PO BID 5 days 10 tabs 1RF ASTHMA EXCERBATION Coding Level of Care Code Est Pt Level 3 (85308) Diagnoses Exacerbation of asthma J45.901 Cough R05.9
== END 2023-12-03 16:55 | disposition home or self-care (01) ==
PROVIDERS: PCP Internal Medicine; Visit Provider Internal Medicine
DX: J45.901 Unspecified asthma with (acute) exacerbation (principal); R05.9 Cough, unspecified
CPT/HCPCS: 99213

== ENCOUNTER → 2023-12-03 16:07 | Outpatient (BNVA) | payer OTHER, SELFPAY | PROVIDERS: PCP Internal Medicine; Visit Provider Internal Medicine ==

== ENCOUNTER 2024-02-06 09:47 | Outpatient (REF) | payer OTHER, SELFPAY ==
[2024-02-06 10:56] LABS: Alanine Aminotransferase 18 U/L (0-40); Albumin Level 4.4 g/dL (3.5-5.0); Alkaline Phosphatase 100 U/L (39-117); Anion Gap 12 (12-20); Aspartate Amino Transferase 16 U/L (5-37); Bilirubin Total 0.6 mg/dL (0.0-1.0); Blood Urea Nitrogen 15 mg/dL (9-16); Calcium 9.9 mg/dL (8.4-10.2); Carbon Dioxide 29 mmol/L (22-29); Chloride 107 mmol/L (96-108); Cholesterol 270 mg/dL (<200); Estimated Glomerular Filt Rate > 60; Glucose Random 99 mg/dL (60-115); HDL Cholesterol 62 mg/dL (>40); LDL Cholesterol Calculated 188 mg/dL (<100); Potassium 3.7 mmol/L (3.3-5.1); Sodium 144 mmol/L (135-145); Total Protein 7.4 g/dL (6.5-8.0); Triglycerides 103 mg/dL (<150)
== END 2024-02-06 09:48 | disposition home or self-care (01) ==
LOC: HO.10HDL 09:47
PROVIDERS: Visit Provider Internal Medicine
DX: C61 Malignant neoplasm of prostate (principal); E78.00 Pure hypercholesterolemia, unspecified; I10 Essential (primary) hypertension; J45.909 Unspecified asthma, uncomplicated
CPT/HCPCS: 36415; 80053; 80061

== ENCOUNTER 2024-02-18 16:23 | Outpatient (AMB) | payer OTHER, SELFPAY ==
[2024-02-18 16:24] VITALS: BP 140/90; PULSE 94; O2SAT 97; BMI 28.7
--- NOTE | 2024-02-18 16:24 | MHC.OFFVIS ---
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 Comes for follow-up after 6 months. He has been doing very well and overall has remained stable. Only complaint is that sometime he has cough and is not able to expectorates mucus. Inhaling steam in the shower helps a lot. He continues to use Trelegy Ellipta once a day and albuterol HFA only once in a while. Since his last visit he has not required to use any course of prednisone. He still being treated for prostate cancer with Nubeqa 600 mg b.i.d.. He does not smoke. His girlfriend has a dog and he is highly allergic to dogs and tries to stay away from. Also his nephew smokes but he tells him to smoke out of the house. [facility] Medical History Exacerbation of asthma Snoring Asthma Cancer of prostate Dyspnea on effort Cough Social History Patient Tobacco Use Status: Never used Tobacco Review of Systems Const All systems reviewed & are unremarkable except as noted in HPI and below Eyes Reports no additional complaints ENT Reports no additional complaints Card Denies chest pain, Denies irregular heart rhythm and Denies leg edema Resp Reports as per HPI GI Reports no additional complaints Reports nocturia, Reports urinary frequency and Reports other (Recent diagnosis of prostate cancer) Musc Reports no additional complaints Skin/Breast Reports system reviewed and no additional complaints, except as documented Neuro Reports no additional complaints Psych Reports no additional complaints Endo Reports no additional complaints Minesh/Lymph Reports no additional complaints Physical Exam Vital Signs: Last Vital Signs Pulse 94 02/18/24 16:24 BP 140/90 H 02/18/24 16:24 Pulse Ox 97 02/18/24 16:24 Oxygen Delivery Method Room Air 02/18/24 16:24 BMI result Body Mass Index 28.7 Const General: comfortable, no acute distress, alert and awake Orientation/consciousness: patient oriented x3 HEENT Head: Yes normal to inspection General nose exam: No nasal polyps present, mucous membranes and turbinates abnormal (NASAL TURBINATES ARE MODERATELY ENLARGED) and No nasal discharge present Face and sinus: Yes sinuses nontender Mouth: oropharynx normal Throat: Yes posterior oropharynx normal Eyes General: appearance normal, both eyes and all related structures Neck Neck: Yes normal visual inspection, Yes no lymphadenopathy, Yes trachea midline, Yes no JVD and Yes other (NECK CIRCUMFERENCE 16 IN) Thyroid: Thyroid normal Chest Chest palpation & inspection: normal inspection of the chest, normal palpation of entire chest wall and no tenderness Resp Other: Percussion note is resonant, breath sounds are equal on both sides . Both lungs are very clear today ache. No wheezing or crepitations are heard. Cardio Palpation: normal PMI Rate: regular rate Rhythm: regular rhythm Heart sounds: no gallops and no murmurs GI Palpation (GI): Soft to palpation, nontender, No hepatosplenomegaly present and no masses Auscultation: normal bowel sounds Back/Spine/Pelvis Thoracic/Lumbar Spine: thoracic and lumbar spine normal to inspection Skin General skin exam: no rashes or lesions noted Neuro General: patient oriented x3 and no focal motor deficits Cranial nerves: Yes CN's II-XII intact bilaterally Extrem General: Yes normal to inspection, Yes no clubbing, cyanosis or edema and Yes no calf tenderness Psych Appearance: grossly normal Speech and movement: Normal speech and movement present Assessment & Plan Assessment & Plan (1) Asthma: Comment: MILD INTERMITTENT, MOSTLY DUE, TO EXPOSURE TO DUST , SMOKE, OR FIBERGLASS INSULATION OR IF HE HAS ANY UPPER RESPIRATORY INFECTION, AT PRESENT HE IS DOING WELL AND STABLE. Code(s): J45.909 - Unspecified asthma, uncomplicated Category: Medical Plan: CONTINUE TRELEGY ELLIPTA 1 INHALATION DAILY. USE ALBUTEROL HFA 2 PUFFS Q 4-6 HOURS P.R.N.. (2) Snoring: Comment: ACCORDING TO HIS HE DOES SNORE MODERATELY AT NIGHT ESPECIALLY IF HE IS IN SUPINE POSITION JENNY SAYS THAT HE TENDS TO SNORE MORE WHEN HE HAS COMMON COLD SYMPTOMS. Code(s): R06.83 - Snoring Category: Medical Plan: ADVISED TO SLEEP IN LATERAL POSITION AND, MAY USE NASAL DECONGESTANTS WHEN HE HAS ANY NASAL CONGESTION. Coding Level of Care Code Est Pt Level 3 (54777) Diagnoses Asthma J45.909 Snoring R06.83
== END 2024-02-18 16:37 | disposition home or self-care (01) ==
PROVIDERS: PCP Internal Medicine; Visit Provider Internal Medicine
DX: J45.909 Unspecified asthma, uncomplicated (principal); R06.83 Snoring
CPT/HCPCS: 99213

== ENCOUNTER → 2024-02-18 16:23 | Outpatient (BNVA) | payer OTHER, SELFPAY | PROVIDERS: PCP Internal Medicine; Visit Provider Internal Medicine ==

== ENCOUNTER 2024-08-05 15:19 | Outpatient (REF) | payer OTHER, SELFPAY ==
[2024-08-05 15:30] LABS: MANUAL DIFF FLAG NO
[2024-08-05 16:05] LABS: Basophils Absolute Auto 0.1 X10*3/uL (0.0-0.2); Basophils Percent Auto 1.5 % (0-2); Eosinophils Absolute Auto 0.5 X10*3/uL (0.0-0.4); Eosinophils Percent Auto 9.5 % (0-4); Hematocrit 38.2 % (42.0-52.0); Hemoglobin 12.5 g/dl (14.0-18.0); Imm Gran Abs Auto 0.01 X10*3/uL (0.00-0.03); Imm Gran Pct Auto 0.2 % (0.0-0.4); Lymphocytes Absolute Auto 1.8 X10*3/uL (1.2-4.9); Lymphocytes Percent Auto 34.2 % (20-40); Mean Corpuscular HGB Conc 32.7 g/dl (31.0-36.0); Mean Corpuscular Hemoglobin 29.7 pg (27.0-33.0); Mean Corpuscular Volume 90.7 fL (80.0-98.0); Mean Platelet Volume 9.4 fL (9.4-12.4); Monocytes Absolute Auto 0.4 X10*3/uL (0.1-1.2); Monocytes Percent Auto 7.7 % (2-11); Neutrophils Absolute Auto 2.4 x10*3/uL (2.0-8.3); Neutrophils Percent Auto 46.9 % (45-73); Platelet Count 309 X10*3/uL (160-400); Red Blood Count 4.21 X10*6/uL (4.60-5.80); Red Cell Distribution Width 14.2 % (11.0-16.0); White Blood Count 5.2 X10*3/uL (4.8-10.8)
[2024-08-05 16:49] LABS: Alanine Aminotransferase 20 U/L (0-40); Albumin Level 4.5 g/dL (3.5-5.0); Alkaline Phosphatase 112 U/L (39-117); Anion Gap 9 (12-20); Aspartate Amino Transferase 22 U/L (5-37); Bilirubin Total 0.5 mg/dL (0.0-1.0); Blood Urea Nitrogen 18 mg/dL (9-16); Calcium 9.6 mg/dL (8.4-10.2); Carbon Dioxide 26 mmol/L (22-29); Chloride 108 mmol/L (96-108); Cholesterol 249 mg/dL (<200); Estimated Glomerular Filt Rate > 60; Glucose Random 77 mg/dL (60-115); HDL Cholesterol 54 mg/dL (>40); LDL Cholesterol Calculated 170 mg/dL (<100); Potassium 4.4 mmol/L (3.3-5.1); Sodium 139 mmol/L (135-145); Total Protein 7.3 g/dL (6.5-8.0); Triglycerides 128 mg/dL (<150)
--- OUTSIDE RECORDS SUMMARY | 2024-08-05 18:16 | XMS_ITS ---
Author Organization [facility] Address [address] [place] [address] Care Team Providers Care Education Technician Name Role Phone Phoebe Medellin NP Primary Care Provider [id number] [facility] Program Status:Enrolled (Active) Start date:04/10/2022 Enrollment date:04/10/2022 Case Team Name Relationship Phone Neil Arnold PharmD (Responsible Staff) [phone] Continued Care and Services Coordination
--- OUTSIDE RECORDS SUMMARY | 2024-08-05 18:16 | XMS_ITS | Clinical Summary ---
Author Organization [facility] Address [address] [place] [address] Care Team Providers Care Service Attendant Name Role Phone Phoebe Medellin NP Primary Care Provider Source Comments PLEASE NOTE, if this patient is a minor, it may be UNLAWFUL to discuss sensitive information that is contained in these records (such as FAMILY PLANNING, MENTAL HEALTH or SUBSTANCE ABUSE) with the minor patient's parent or other person without the patient's specific authorization.[facility] Allergies Active Allergy Reactions Criticality Noted Date Comments Lisinopril 05/02/2022 cough Medications silodosin (RAPAFLO) 8 mg capsuleIndication s:Enlarged prostate Take 1 Capsule by mouth once daily 90 Capsule 1 3 Active amLODIPine (NORVASC) 10 mg tabletIndications :Essential hypertension TAKE 1 TABLET BY MOUTH EVERY DAY 90 Tablet 1 3 Active albuterol HFA 90 mcg/actuation inhalerIndication s:Asthma-COPD overlap syndrome (HCC-CMS) Inhale 2 Puffs into the lungs every 4 to 6 (four to six) hours as needed for shortness of breath or wheezing 18 g 1 3 Active blood pressure test kit-largeIndicati ons:Essential hypertension SMBP Program - [facility] 3D FUTURE VISION II - Checking BP Daily 1 Kit 3 Active ADVAIR DISKUS 250-50 mcg/dose diskus inhalerIndication s:Acute cough,Diffuse wheezing INHALE 1 PUFF INTO THE LUNGS TWICE A DAY 180 Each 1 3 Active Active Problems Problem Noted Date Diagnosed Date Enlarged prostate 05/31/2022 Overview (06/02/2022): 06/02/2022: This film writer called patient at 1130AM, He reports he was able to get connected with [facility] at 945Am this morning, they removed catheter, he has been able to urinate x 1. He will continue to monitor his urina at this time and was sent home. Reports he has an appt Jun 20 to complete a study and june 30 he has another appt. He was advised to c/w meds, if unable urinate he will have to return . 05/31/2022: Pt brings in copy of USKUB done at [facility] in [place]. Dated 06/22/2022. Impression concludes; Prostaomegaly. Non compliance w medication regimen 05/02/2022 Dyslipidemia 05/02/2022 Overview (05/02/2022): The 10-year ASCVD risk score (Rakesh THURMAN, et al., 2019) is: 11.1% Asthma-COPD overlap syndrome (HCC-CMS) 2 Overview (04/12/2022): 04/06/22: PFT at [facility] show FEV1 49% with severe obstructive lung disease which improved post dilation. The diffuse capacity is normal History of hemorrhoids 02/16/2022 Essential hypertension 02/16/2022 Immunizations Immunization Administration Dates Next Due Flu, Preservative Free 02/16/2022 MODERNA COVID-19 VACCINE BIVALENT, BLUE CAP, 6M+ 02/16/2022 Moderna COVID-19 Vaccine, re d cap blue label, 12+ Primary Series 09/13/2020,08/16/2020 ZOSTER VACCINE, RECOMBINANT (SHINGRIX) 3,02/16/2022 Family History Medical History Relation Name Comments Lung Cancer Father Hypertension Mother Stroke Mother Hypertension Sister Relation Name Status Comments Father Mother Sister Social History Tobacco Use Types Packs/Day Years Used Date Smoking Tobacco: Never Smokeless Tobacco: Never Tobacco Cessation:Counseling Given: Not Answered Alcohol Use Standard Drinks/Week Comments Not Currently 0 (1 standard drink = 0.6 oz pur e alcohol) on the weekends Social Connections Answer Date Recorded Connectedness 0 05/31/2022 Financial Resource Strain Answer Date R ecorded Financial Resource Strain 0 2022 Stress Answer Date Recorded Stress 0 12/27/2021 Physical Activity Answer Date Recorded Physical Activity 0 12/27/2021 Food Insecurity Answer Date Recorded Food 0 05/31/2022 Transportation Needs Answer Date Record ed Transportation 0 05/31/2022 Housing Stability Answer Date Recorded Housing 0 05/31/2022 Safety and Environment Answer Date Uriah rded Safety 0 05/31/2022 Utilities Answer Date Recorded Utilities 0 05/31/2022 Employment Answer Date Recorded Employment 0 12/27/2021 Sex and Gender Information Value Date Recorded Sex Assigned at Male 02/16/2022 8:27 AM PDT Legal Sex Male 9:25 AM PDT Gender Identity Male 02/16/2022 8:27 AM PDT Sexual Orientation Straight 02/16/2022 8: 27 AM PDT 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 Not on file Not on file Not on file Last Filed Vital Signs Vital Sign Reading Time Taken Comments Blood Pressure 138/100 06/12/2022 9:03 AM EST Pulse 80 06/12/2022 9:03 AM EST Temperature 36.6 ??C (97.9 ??F) 06/12/2022 9:03 AM ES T Respiratory Rate 18 06/12/2022 9:03 AM EST Oxygen Saturation 98% 06/12/2022 9:03 AM EST Inhaled Oxygen Concentration - - Weight 88.9 kg (196 lb) 06/12/2022 9:03 AM EST Height 180.3 cm (5' 11 ) 06/12/2022 9:03 AM EST Body Mass Index 27.34 06/12/2022 9:03 AM EST Plan of Treatment Health Maintenance Due Date Last Done Comments Anxiety Screening 1965 Imm-DTaP/Tdap/Td (1 - Tdap) 1984 Imm-Hepatitis B (1 of 3 - 19 + 3-dose series) 1984 Imm-Pneumococcal (1 of 2 - PCV) 1984 CT Colonography 2010 FIT/gFOBT 2010 Fecal DNA 2010 Flexible Sigmoidoscopy 2010 Annual Preventive Care Visit 02/16/2023 02/16/2022 Tobacco Screening 02/16/2023 02/16/2022 [id number] () 2023 02/16/2022, 09/13/2020, 08/16/2020 Imm-Influenza (#1) 2023 02/16/2022 Alcohol and Drug Screen 04/30/2024 05/31/2022, 02/16 Depression Annual Screen 04/30/2024 05/31/2022 Diabetes Screening 03/21/2025 03/21/2022, 03/21/2022 Lipid Screening 03/21/2025 03/21/2022 Colonoscopy 04/30/2029 04/30/2019 Colorectal Cancer Screening 04/30/2029 HIV Screening Completed 03/21/2022 Hepatitis C Screening Completed 03/21/2022 Imm-Zoster, Recombinant Completed 05/08/2022, 02/16 Goals Goal Patient Goal Type Associated Problems Recent Progress Patient-Stated? Author Blood Pressure < 130/80 Blood Pressure 138/100(06/12 9:03 AM EST) No Neil Espinosa, Eva Hypertension: Decrease sodium intake General On track( 023 10:46 AM PST) No Neil Espinosa, Eva Procedures Procedure Name Priority Date/Time Associated Diagnosis Comments HIV 1/2 AG & AB W/RFLX (4TH GEN) Routine 03/21/2022 1:05 PM EST Routine general medical examination at a health care facility HEPATITIS C AB W/RFLX HCV RNA, QT, RT PCR Routine 03/21/2022 1:05 PM EST Routine general medical examination at a health care facility COMPREHENSIVE METABOLIC PANEL Routine 03/21/2022 1:05 PM EST Routine general medical examination at a health care facility LIPID PANEL Routine 03/21/2022 1:05 PM EST Routine general medical examination at a health care facility from Last 3 Months or Most Recently Relevant to Health Maintenance Results * HEPATITIS C AB W/RFLX HCV RNA, QT, RT PCR (03/21/2022 1:05 PM EST) Pathologist [facility] HEPATITIS C ANTIBODY NON-REACT MJ NON-REACT MJ [facility] SIGNAL TO CUT-OFF 0.06 <1.00 [facility] Comment: HCV antibody was non-reactive. There is no laboratory evidence of HCV infection. In most cases, no further action is required. However, if recent HCV exposure is suspected, a test for HCV RNA (test code 78858) is suggested. For additional information please refer to http://[employer]s.Penana/faq/CFF29f7 (This link is being provided for informational/ educational purposes only.) Blood Blood / Unknown 03/21/2022 1 :05 PM EST 03/21/2022 1:06 PM EST Narrative [facility] - 03/22/2022 6:20 AM EST FASTING:NO us Phoebe Medellin NP LAB - BLOOD DRAW Edited Resu lt - Final [facility] [address] [address], [facility] [address] [address] * HIV 1/2 AG & AB W/RFLX (4TH GEN) (03/21/2022 1:05 PM EST) Pathologist [facility] HIV AG/AB, 4TH GEN NON-REAC TIVE NON-REAC TIVE [facility] Comment: HIV-1 antigen and HIV-1/HIV-2 antibodies were not detected. There is no laboratory evidence of HIV infection. PLEASE NOTE: This information has been disclosed to you from records whose confidentiality may be protected by state law. ??If your state requires such protection, then the state law prohibits you from making any further disclosure of the information without the specific written consent of the person to whom it pertains, or as otherwise permitted by law. A general authorization for the release of medical or other information is NOT sufficient for this purpose. ?? For additional information please refer to http://[employer].Penana/faq/GZI118 (This link is being provided for informational/ educational purposes only.) The performance of this assay has not been clinically validated in patients less than 2 years old. Blood Blood / Unknown 03/21/2022 1 :05 PM EST 03/21/2022 1:06 PM EST Narrative [facility] - 03/22/2022 6:20 AM EST FASTING:NO us Phoebe Medellin NP LAB - BLOOD DRAW Final Resul t [facility] [address] [address], [facility] [address] [address] * (ABNORMAL) LIPID PANEL (03/21/2022 1:05 PM EST) [facility] CHOLESTEROL, TOTAL 250(H) <200 mg/dL [facility] HDL CHOLESTEROL 46 > OR = 40 mg/dL [facility] TRIGLYCERIDES 103 <150 mg/dL [facility] LDL-CHOLESTEROL 182(H) 99 mg/dL (calc) [facility] Comment: Reference range: <100 Desirable range <100 mg/dL for primary prevention; ?? <70 mg/dL for patients with CHD or diabetic patients with > or = 2 CHD risk factors. LDL-C is now calculated using the Dylan-Eduard calculation, which is a validated novel method providing better accuracy than the Friedewald equation in the estimation of LDL-C. Dylan SS et al. JOSIANE. 2013;310(19): 7951-8328 (http://education.Doutíssima/faq/TQV244) CHOL/HDLC RATIO 5.4(H) <5.0 (calc) [facility] NON-HDL CHOLESTEROL 204(H) <130 mg/dL (calc) [facility] Comment: For patients with diabetes plus 1 major ASCVD risk factor, treating to a non-HDL-C goal of <100 mg/dL (LDL-C of <70 mg/dL) is considered a therapeutic option. Blood Blood / Unknown 03/21/2022 1 :05 PM EST 03/21/2022 1:06 PM EST Narrative [facility] - 03/22/2022 6:20 AM EST FASTING:NO us Phoebe Medellin NP LAB - BLOOD DRAW Final Resul t [facility] [address] [address], [facility] [address] [address] * COMPREHENSIVE METABOLIC PANEL (03/21/2022 1:05 PM EST) GLUCOSE 79 65 - 139 mg/dL [facility] Comment: ?Non-fasting reference interval UREA NITROGEN (BUN) 12 7 - 25 mg/dL [facility] CREATININE (blood) 0.85 0.70 - 1.30 mg/dL [facility] EGFR 102 > OR = 60 mL/min/1 .73m2 [facility] Comment: The eGFR is based on the CKD-EPI 2020 equation. To calculate the new eGFR from a previous Creatinine or Cystatin C result, go to https://www.kidney.org/professionals/ kdoqi/gfr%5Fcalculator BUN/CREATININE RATIO NOT APPLICABLE [facility] SODIUM 137 135 - 146 mmol/L [facility] POTASSIUM 4.3 3.5 - 5.3 mmol/L [facility] CHLORIDE 101 98 - 110 mmol/L [facility] CARBON DIOXIDE 28 20 - 32 mmol/L [facility] CALCIUM 9.4 8.6 - 10.3 mg/dL [facility] PROTEIN, TOTAL 7.6 6.1 - 8.1 g/dL [facility] ALBUMIN 4.7 3.6 - 5.1 g/dL [facility] GLOBULIN 2.9 1.9 - 3.7 g/dL (calc) [facility] ALBUMIN/GLOBUL IN RATIO 1.6 1.0 - 2.5 (calc) [facility] BILIRUBIN, TOTAL 0.6 0.2 - 1.2 mg/dL [facility] ALKALINE PHOSPHATASE 68 35 - 144 U/L [facility] AST 28 10 - 35 U/L [facility] ALT 18 9 - 46 U/L [facility] Blood Blood / Unknown 03/21/2022 1 :05 PM EST 03/21/2022 1:06 PM EST Narrative [facility] - 03/22/2022 6:20 AM EST FASTING:NO us Phoebe Medellin NP LAB - BLOOD DRAW Edited Resu lt - Final [facility] [address] [facility] [address] [place] [address], [facility] [address] [address] from Last 3 Months or Most Recently Relevant to Health Maintenance Insurance [place] [facility]) Member Subscriber Plan / Payer ( fective 2021-Present) Name:Jaiden CRUMP Relation to Subscriber:Self Name:Jaiden CRUMP Payer ID:[id number] Type:Indemnity Address: [address] [place] [id number] Care Teams Service Attendant Relationship Specialty Start Date End Date Phoebe Medellin NP [address] [place] [address] PCP - General Internal Medicine 12/27/21
== END 2024-08-05 15:20 | disposition home or self-care (01) ==
LOC: HO.LAB 15:19
PROVIDERS: PCP Internal Medicine; Visit Provider Internal Medicine
DX: C61 Malignant neoplasm of prostate (principal); E78.00 Pure hypercholesterolemia, unspecified; I10 Essential (primary) hypertension; J44.9 Chronic obstructive pulmonary disease, unspecified
CPT/HCPCS: 36415; 80053; 80061; 85025

== ENCOUNTER 2024-08-25 16:13 | Outpatient (AMB) | payer OTHER, SELFPAY ==
[2024-08-25 16:16] VITALS: BP 130/82; PULSE 90; O2SAT 96; BMI 30.1
--- NOTE | 2024-08-25 16:16 | MHC.OFFVIS ---
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 He is doing well except for intermittent acute exacerbations. He has had a recent course of prednisone prescribed by his primary care physician. Main issue is the he builds lot of mucus which is difficult to expectorates. This happens in any seasonal changes. His girlfriend does have a dog to which he is allergic and he tries to keep himself away as much as possible . He is traveling to [place] for about a week and he is afraid that he may get an acute exacerbation so he would like to have some prednisone on hand. [facility] Medical History Exacerbation of asthma Snoring Asthma Cancer of prostate Dyspnea on effort Cough Social History Patient Tobacco Use Status: Never used Tobacco Review of Systems Const All systems reviewed & are unremarkable except as noted in HPI and below Eyes Reports no additional complaints ENT Reports no additional complaints Card Denies chest pain, Denies irregular heart rhythm and Denies leg edema Resp Reports as per HPI GI Reports no additional complaints Reports nocturia, Reports urinary frequency and Reports other (Recent diagnosis of prostate cancer) Musc Reports no additional complaints Skin/Breast Reports system reviewed and no additional complaints, except as documented Neuro Reports no additional complaints Psych Reports no additional complaints Endo Reports no additional complaints Minesh/Lymph Reports no additional complaints Physical Exam Vital Signs: Last Vital Signs Pulse 90 08/25/24 16:16 BP 130/82 08/25/24 16:16 Pulse Ox 96 08/25/24 16:16 Oxygen Delivery Method Room Air 08/25/24 16:16 BMI result Body Mass Index 30.1 Const General: comfortable, no acute distress, alert and awake Orientation/consciousness: patient oriented x3 HEENT Head: Yes normal to inspection General nose exam: No nasal polyps present, mucous membranes and turbinates abnormal (NASAL TURBINATES ARE MODERATELY ENLARGED) and No nasal discharge present Face and sinus: Yes sinuses nontender Mouth: oropharynx normal Throat: Yes posterior oropharynx normal Eyes General: appearance normal, both eyes and all related structures Neck Neck: Yes normal visual inspection, Yes no lymphadenopathy, Yes trachea midline, Yes no JVD and Yes other (NECK CIRCUMFERENCE 16 IN) Thyroid: Thyroid normal Chest Chest palpation & inspection: normal inspection of the chest, normal palpation of entire chest wall and no tenderness Resp Other: Percussion note is resonant, breath sounds are equal on both sides . Both lungs are clear today . No wheezing or crepitations are heard. Cardio Palpation: normal PMI Rate: regular rate Rhythm: regular rhythm Heart sounds: no gallops and no murmurs GI Palpation (GI): Soft to palpation, nontender, No hepatosplenomegaly present and no masses Auscultation: normal bowel sounds Back/Spine/Pelvis Thoracic/Lumbar Spine: thoracic and lumbar spine normal to inspection Skin General skin exam: no rashes or lesions noted Neuro General: patient oriented x3 and no focal motor deficits Cranial nerves: Yes CN's II-XII intact bilaterally Extrem General: Yes normal to inspection, Yes no clubbing, cyanosis or edema and Yes no calf tenderness Psych Appearance: grossly normal Speech and movement: Normal speech and movement present Assessment & Plan Assessment & Plan (1) Asthma: Comment: MILD INTERMITTENT, MOSTLY DUE, TO EXPOSURE TO DUST , SMOKE, OR FIBERGLASS INSULATION OR IF HE HAS ANY UPPER RESPIRATORY INFECTION, AT PRESENT HE IS DOING WELL AND STABLE. Code(s): J45.909 - Unspecified asthma, uncomplicated Category: Medical Plan: Continue to use Trelegy inhaler 1 inhalation daily Albuterol HFA 2 puffs Q 6 hours p.r.n. Prednisone 5 mg 20 tablets prescribed for him to keep [place]. (2) Snoring: Comment: ACCORDING TO HIS GIRL FRIEND HE DOES SNORE MODERATELY AT NIGHT ESPECIALLY IF HE IS IN SUPINE POSITION JENNY SAYS THAT HE TENDS TO SNORE MORE WHEN HE HAS COMMON COLD SYMPTOMS. Code(s): R06.83 - Snoring Category: Medical Plan: Advise that he should try to sleep in lateral position. Also advised that he needs to lose weight . (3) Dyspnea on effort: Comment: DYSPNEA ON EFFORT, MILD, WITH INTERMITTENT WHEEZING. MAY BE DUE TO BRONCHIAL ASTHMA/COPD. ALSO DUE TO SOME DECONDITIONING RELATED TO HIS CARCINOMA OF THE PROSTATE AND MODERATE OBESITY. Code(s): R06.09 - Other forms of dyspnea Category: Medical Plan: ADVISE TO CONTINUE TREATMENT FOR BRONCHIAL ASTHMA. LOSE WEIGHT ( ABOUT 20 LB) Medications: New prednisone 10 mg (2 x 5 mg) PO BID 5 days 20 tabs 1RF ASTHMA EXCERBATION Coding Level of Care Code Est Pt Level 3 (40023) Diagnoses Asthma J45.909 Snoring R06.83 Dyspnea on effort R06.09
--- OUTSIDE RECORDS SUMMARY | 2024-08-25 18:55 | XMS_ITS | Clinical Summary ---
Author Organization [facility] Address [address] [place] [address] Care Team Providers Care Director Print Name Role Phone Phoebe Medellin NP Primary [...] test kit-largeIndicati ons:Essential hypertension SMBP Program - [facility] [employer] - Checking BP Daily 1 Kit 3 Active ADVAIR DISKUS 250-50 mcg/dose diskus inhalerIndication s:Acute cough,Diffuse wheezing INHALE 1 PUFF INTO THE LUNGS TWICE A DAY 180 Each 1 3 Active Active Problems Problem Noted Date Diagnosed Date Enlarged prostate 05/31/2022 Overview (06/02/2022): 06/02/2022: This process description writer called patient at 1130AM, He reports [...] brings in copy of USKUB done at [facility] in [place]. Dated 06/22/2022. Impression concludes; Prostaomegaly. Non compliance w medication regimen 05/02/2022 Dyslipidemia 05/02/2022 Overview (05/02/2022): The 10-year ASCVD risk score (Rakesh THURMAN, et al., 2019) is: 11.1% Asthma-COPD overlap syndrome (HCC-CMS) 2 Overview (04/12/2022): 04/06/22: PFT at [facility] show FEV1 49% with severe obstructive lung [...] Visit 02/16/2023 02/16/2022 Tobacco Screening 02/16/2023 02/16/2022 [id number] () 2023 02/16/2022, 09/13/2020, 08/16/2020 Imm-Influenza (#1) [...] RT PCR (03/21/2022 1:05 PM EST) Pathologist [facility] HEPATITIS C ANTIBODY NON-REACT MJ NON-REACT MJ [facility] SIGNAL TO CUT-OFF 0.06 <1.00 [facility] Comment: HCV antibody was non-reactive. There is no laboratory evidence of HCV infection. In most cases, no further action is required. However, if recent HCV exposure is suspected, a test for HCV RNA (test code 57352) is suggested. For additional information please refer to http://[employer].Wowan365.com/faq/YKJ43z1 (This link is being provided for informational/ educational purposes only.) Blood Blood / Unknown 03/21/2022 1 :05 PM EST 03/21/2022 1:06 PM EST Narrative [facility] - 03/22/2022 6:20 AM EST FASTING:NO us Phoebe Medellin NP LAB - BLOOD DRAW Edited Resu lt - Final [facility] [address] [address], [facility] [address] [address] * HIV 1/2 AG & AB W/RFLX (4TH GEN) (03/21/2022 1:05 PM EST) Pathologist [facility] HIV AG/AB, 4TH GEN NON-REAC TIVE NON-REAC TIVE [facility] Comment: HIV-1 antigen and HIV-1/HIV-2 antibodies were [...] ?? For additional information please refer to http://[employer].Wowan365.com/faq/BHJ131 (This link is being provided for informational/ educational purposes only.) The performance of this assay has not been clinically validated in patients less than 2 years old. Blood Blood / Unknown 03/21/2022 1 :05 PM EST 03/21/2022 1:06 PM EST Narrative [facility] - 03/22/2022 6:20 AM EST FASTING:NO us Phoebe Medellin NP LAB - BLOOD DRAW Final Resul t [facility] [address] [address], [facility] [address] [address] * (ABNORMAL) LIPID PANEL (03/21/2022 1:05 PM EST) [facility] CHOLESTEROL, TOTAL 250(H) <200 mg/dL [facility] HDL CHOLESTEROL 46 > OR = 40 mg/dL [facility] TRIGLYCERIDES 103 <150 mg/dL [facility] LDL-CHOLESTEROL 182(H) 99 mg/dL (calc) [facility] Comment: Reference range: <100 Desirable range <100 mg/dL for primary prevention; ?? <70 mg/dL for patients with CHD or diabetic patients with > or = 2 CHD risk factors. LDL-C is now calculated using the Dylan-Eduard calculation, which is a validated novel method providing better accuracy than the Friedewald equation in the estimation of LDL-C. Dylan SS et al. JOSIANE. 2013;310(19): 4665-9440 (http://education.Jumpzter/faq/XVV588) CHOL/HDLC RATIO 5.4(H) <5.0 (calc) [facility] NON-HDL CHOLESTEROL 204(H) <130 mg/dL (calc) [facility] Comment: For patients with diabetes plus 1 major ASCVD risk factor, treating to a non-HDL-C goal of <100 mg/dL (LDL-C of <70 mg/dL) is considered a therapeutic option. Blood Blood / Unknown 03/21/2022 1 :05 PM EST 03/21/2022 1:06 PM EST Narrative [facility] - 03/22/2022 6:20 AM EST FASTING:NO us Phoebe Medellin NP LAB - BLOOD DRAW Final Resul t [facility] [address] [address], [facility] [address] [address] * COMPREHENSIVE METABOLIC PANEL (03/21/2022 1:05 PM EST) GLUCOSE 79 65 - 139 mg/dL [facility] Comment: ?Non-fasting reference interval UREA NITROGEN (BUN) 12 7 - 25 mg/dL [facility] CREATININE (blood) 0.85 0.70 - 1.30 mg/dL [facility] EGFR 102 > OR = 60 mL/min/[address] [facility] Comment: The eGFR is based on the CKD-EPI 2020 equation. To calculate the new eGFR from a previous Creatinine or Cystatin C result, go to https://www.kidney.org/professionals/ kdoqi/gfr%5Fcalculator BUN/CREATININE RATIO NOT APPLICABLE [facility] SODIUM 137 135 - 146 mmol/L [facility] POTASSIUM 4.3 3.5 - 5.3 mmol/L [facility] CHLORIDE 101 98 - 110 mmol/L [facility] CARBON DIOXIDE 28 20 - 32 mmol/L [facility] CALCIUM 9.4 8.6 - 10.3 mg/dL [facility] PROTEIN, TOTAL 7.6 6.1 - 8.1 g/dL [facility] ALBUMIN 4.7 3.6 - 5.1 g/dL [facility] GLOBULIN 2.9 1.9 - 3.7 g/dL (calc) [facility] ALBUMIN/GLOBUL IN RATIO 1.6 1.0 - 2.5 (calc) [facility] BILIRUBIN, TOTAL 0.6 0.2 - 1.2 mg/dL [facility] ALKALINE PHOSPHATASE 68 35 - 144 U/L [facility] AST 28 10 - 35 U/L [facility] ALT 18 9 - 46 U/L [facility] Blood Blood / Unknown 03/21/2022 1 :05 PM EST 03/21/2022 1:06 PM EST Narrative [facility] - 03/22/2022 6:20 AM EST FASTING:NO us Phoebe Medellin NP LAB - BLOOD DRAW Edited Resu lt - Final [facility] [address] [facility] [address] [place] [address], [facility] [address] [address] from Last 3 Months or Most Recently Relevant to Health Maintenance Insurance [place] [facility]) Member Subscriber Plan / Payer ( fective 2021-Present) Name:Jaiden CRUMP Relation to Subscriber:Self Name:Jaiden CRUMP Payer ID:[id number] Type:Indemnity Address: [address] [place] [id number] Care Teams Director Print Relationship Specialty Start Date End Date Phoebe Medellin NP [address] [place] [address] PCP - General Internal Medicine 12/27/21
--- OUTSIDE RECORDS SUMMARY | 2024-08-25 18:55 | XMS_ITS ---
Author Organization [facility] Address [address] [place] [address] Care Team Providers Care Biofuels Manager Name Role Phone Phoebe Medellin NP Primary Care Provider [id number] SMBP Program Status:Enrolled (Active) Start date:04/10/2022 Enrollment date:04/10/2022 Case Team Name Relationship Phone Neil Arnold PharmD (Responsible Staff) [phone] Continued Care and Services Coordination
== END 2024-08-25 16:30 | disposition home or self-care (01) ==
LOC: HO.HPS 16:13
PROVIDERS: PCP Internal Medicine; Visit Provider Internal Medicine
DX: J45.909 Unspecified asthma, uncomplicated (principal); R06.83 Snoring; R06.09 Other forms of dyspnea
CPT/HCPCS: 99213